=== PATIENT | male | born 1955 | race African-American/Black ===

== ENCOUNTER 2017-06-23 21:21 | Inpatient (IN) | payer MEDICAID ==
[~2017-06-23] VITALS: Ht 190.5 cm; Wt 126.1 kg
[2017-06-24] MEDS ORDERED: ASPIRIN 325MG EC TABLET PO NR (01:45)
[2017-06-24] MEDS ORDERED: NITROGLYCERIN 0.4MG TABLET SL SL PRN (01:45)
[2017-06-24] MEDS ORDERED: ASPIRIN 325MG TABLET PO NR (01:50)
[2017-06-24 01:53] LABS: BASOPHILS % 0.6 % (0.0-2.0); EOSINOPHILS % 3.8 % (0.0-5.0); HEMATOCRIT. 46.6 % (42.0-52.0); HEMOGLOBIN. 16.3 g/dL (14.0-18.0); LYMPHOCYTES % 37.2 % (20.0-50.0); MEAN CORPUSCULAR HEMOGLOBIN 32.7 pg (28.0-32.0); MEAN CORPUSCULAR VOLUME 93.4 fL (80.0-94.0); MEAN PLATELET VOLUME 7.9 fl (7.4-10.4); MONOCYTES % 9.1 % (2.0-8.0); NEUTROPHILS % 49.3 % (40.0-76.0); PLATELET 195 x1000/uL (130-400); RED BLOOD CELL COUNT 4.98 mill/uL (4.7-6.1); RED CELL DISTRIBUTION WIDTH 13.6 % (11.6-14.6)
[2017-06-24 02:03] LABS: CHLORIDE 106 mEq/L (98-107)
[2017-06-24 02:05] LABS: INR 0.9; PROTHROMBIN TIME 9.8 sec (9.4-11.6)
[2017-06-24 12:00] VITALS: BP 147/79
[2017-06-24] MEDS ORDERED: MORPHINE SULFATE 4 MG/ML CPJ (NOT FOR IM USE) IV PRN (12:30)
[2017-06-24] MEDS: METOPROLOL TARTRATE 50MG TABLET PO SCH (13:53)
[2017-06-24] MEDS: NITROGLYCERIN OINT 1GM/INCH UDPKT TD SCH ×2 (14:00→21:50)
[2017-06-24] MEDS ORDERED: ACETAMINOPHEN 325MG TABLET PO PRN (14:00)
[2017-06-24 15:49] LABS: CREATINE KINASE 249 IU/L (39-308); CREATINE KINASE MB FRACTION 0.8 ng/mL (0.5-3.6)
[2017-06-24 16:00] VITALS: BP 169/82
[2017-06-24] MEDS: AMLODIPINE 5MG TABLET PO SCH (16:18)
[2017-06-24 17:41] VITALS: BP 133/84
[2017-06-24 20:00] VITALS: BP 112/65
[2017-06-24] MEDS ORDERED: ATORVASTATIN CALCIUM 40MG TABLET PO SCH (21:00)
[2017-06-24 23:57] LABS: CREATINE KINASE 271 IU/L (39-308); CREATINE KINASE MB FRACTION 0.8 ng/mL (0.5-3.6)
[2017-06-25] VITALS: BP 115/68
[2017-06-25 04:00] VITALS: BP 107/65
[2017-06-25] MEDS: NITROGLYCERIN OINT 1GM/INCH UDPKT TD SCH (06:00)
[2017-06-25 08:00] VITALS: BP 112/70
[2017-06-25 08:05] LABS: BASOPHILS % 0.5 % (0.0-2.0); EOSINOPHILS % 4.8 % (0.0-5.0); HEMATOCRIT. 42.4 % (42.0-52.0); HEMOGLOBIN. 14.8 g/dL (14.0-18.0); LYMPHOCYTES % 41.5 % (20.0-50.0); MEAN CORPUSCULAR HEMOGLOBIN 32.5 pg (28.0-32.0); MEAN CORPUSCULAR VOLUME 92.9 fL (80.0-94.0); MONOCYTES % 9.1 % (2.0-8.0); NEUTROPHILS % 44.1 % (40.0-76.0); PLATELET 196 x1000/uL (130-400); RED BLOOD CELL COUNT 4.56 mill/uL (4.7-6.1)
[2017-06-25] MEDS: AMLODIPINE 5MG TABLET PO SCH (08:16)
[2017-06-25] MEDS: METOPROLOL TARTRATE 50MG TABLET PO SCH (08:17)
[2017-06-25] MEDS ORDERED: ASPIRIN 325MG EC TABLET PO SCH (09:00)
[2017-06-25 09:24] LABS: CHLORIDE 107 mEq/L (98-107)
[2017-06-25 11:12] VITALS: BP 112/70
[2017-06-25 12:35] VITALS: BP 121/67
== END 2017-06-25 12:45 | disposition home or self-care (01) | DRG 203 ==
LOC: ER 06-24 01:21 → 8WST 06-24 05:27 → EDBEDREQ 06-24 05:48 → ENRESERV 06-24 11:14
PROVIDERS: ADMIT Internal Medicine; ATTEND Internal Medicine
DX: M94.0 Chondrocostal junction syndrome [Tietze] (principal); I11.9 Hypertensive heart disease without heart failure; F32.9 Major depressive disorder, single episode, unspecified; E66.9 Obesity, unspecified; E78.5 Hyperlipidemia, unspecified; F43.9 Reaction to severe stress, unspecified; Z68.34 Body mass index [BMI] 34.0-34.9, adult; Z79.899 Other long term (current) drug therapy
CPT/HCPCS: 36415; 71045; 80048; 80053; 82550; 82553; 83880; 84484; 85025; 85610; 93005; 93306; 99285; J7030